=== PATIENT | male | born 1965 | race Asian ===

== ENCOUNTER → 2021-08-26 | Emergency (ER) | payer OTHER ==
[~2021-08-26] VITALS: Ht 172.7 cm; Wt 73.6 kg
[~2021-08-26] MED LIST: HALO5INJ3 IM; HALO5TAB10 PO; HYDR50CA21 PO; LEVE500T5 PO; LISI5TAB10 PO; LORA0.5T17 PO; MIRTAZAPINE7.5 MG PO; OLANZAPINE5 M1 PO; PANTOPRAZOLE 40MG TA PO; SCOP1.5D TD; TRILEPTAL300 MG PO
[2021-08-26 19:39] LABS: PLATELET COUNT 287 K/uL (142-355)
[2021-08-26 19:51] LABS: POTASSIUM 4.1 mmol/L (3.6-5.2)
[2021-08-26 21:40] VITALS: BP 158/87; TEMP 97.3
== END ==
LOC: ED 19:24
PROVIDERS: Emergency Medicine
DX: F25.8 Other schizoaffective disorders (principal); I69.351 Hemiplegia and hemiparesis following cerebral infarction affecting right dominant side; I69.320 Aphasia following cerebral infarction; F03.91 Unspecified dementia, unspecified severity, with behavioral disturbance; Z11.52 Encounter for screening for COVID-19; Z04.6 Encounter for general psychiatric examination, requested by authority
CPT/HCPCS: 36415; 80053; 81000; 85027; 87635; 93005; 99283; J0696; U0003

== ENCOUNTER 2022-03-05 20:28 | Emergency (ER) | payer OTHER ==
[~2022-03-05] VITALS: Ht 172.7 cm; Wt 71.7 kg
[2022-03-05 20:28] VITALS: BP 154/74; TEMP 97.6
[~2022-03-05 20:28] MED LIST changes: +ESCI10TA PO; +HYDR25CA25 PO; +OLAN2.5T2 PO; +OXCARBAZEPIN300 MG PO
[2022-03-05 21:07] LABS: PLATELET COUNT 255 K/uL (142-355)
[2022-03-05 21:15] LABS: POTASSIUM 3.8 mmol/L (3.6-5.2)
[2022-03-06] MEDS ORDERED: ASPIRIN 81 LOW81 MG PO (09:50)
[2022-03-06] MEDS ORDERED: LIPITOR40 MG PO (09:50)
[2022-03-06] MEDS ORDERED: LISI10TA11 PO (09:51)
[2022-03-06] MEDS ORDERED: THIA100T8 PO (09:52)
[2022-03-06] MEDS ORDERED: DIVA125C PO (09:52)
[2022-03-06] MEDS ORDERED: TRILEPTAL300 MG PO (09:55)
[2022-03-06] MEDS ORDERED: NEXIUM20 M1 PO (09:57)
[2022-03-06] MEDS ORDERED: ZYPREXA ZYDI15 MG SL (09:58)
== END 2022-03-05 21:35 | disposition still patient (30) ==
LOC: ED 20:28
PROVIDERS: Hospitalist
DX: F25.8 Other schizoaffective disorders (principal); F03.91 Unspecified dementia, unspecified severity, with behavioral disturbance; Z11.52 Encounter for screening for COVID-19; Z04.6 Encounter for general psychiatric examination, requested by authority
CPT/HCPCS: 36415; 80053; 85027; 87635; 93005; 99283; U0003

== ENCOUNTER 2022-08-10 15:05 | Emergency (ER) | payer OTHER ==
[~2022-08-10] VITALS: Ht 157.5 cm; Wt 78.9 kg
[~2022-08-10 15:05] MED LIST changes: +ASPI81TA4 PO; +ASPIRIN 81 LOW81 MG PO; +ATOR20TA2 PO; +BUSP5TAB2 PO; +BUSPIRONE10 MG PO; +DIPH50IN INJ; +DIVA125C PO; +DIVALPROEX250 MG PO; +HALO5INJ3 INJ; +LIPITOR40 MG PO; +LISI10TA11 PO; +LISINOPRIL 10 MG PO; +MAGNSUS68 PO; +NEXIUM20 M1 PO; +OLANZAPINE5 MG PO; +SERT100T PO; +SERT50TA PO; +TEMA15CA19 PO; +THIA100T8 PO; +ZIPRASIDONE HYD40 MG PO; +ZYPREXA ZYDI15 MG SL
[2022-08-10 16:12] LABS: PLATELET COUNT 183 K/uL (142-355)
[2022-08-10 16:17] LABS: POTASSIUM 4.5 mmol/L (3.6-5.2)
[2022-08-10 16:44] VITALS: BP 124/65; TEMP 98.1
[2022-08-10] MEDS ORDERED: LIPITOR40 MG PO (19:08)
[2022-08-10] MEDS ORDERED: ASPIRIN 81 LOW81 MG PO (19:08)
[2022-08-10] MEDS ORDERED: LISI10TA11 PO (19:09)
[2022-08-10] MEDS ORDERED: SERT100T PO (19:10)
[2022-08-10] MEDS ORDERED: TEMA15CA19 PO (19:11)
[2022-08-10] MEDS ORDERED: OLANZAPINE5 M1 PO (19:13)
[2022-08-10] MEDS ORDERED: BUSPIRONE10 MG PO (19:14)
[2022-08-10] MEDS ORDERED: DIVA125C PO (19:15)
[2022-08-10] MEDS ORDERED: MILK OF MA400 MG/5 M PO (19:17)
[2022-08-10] MEDS ORDERED: DIPHENHYDRAM50 MG/ML IM (19:25)
[2022-08-10] MEDS ORDERED: HALO5INJ3 IM (19:26)
== END 2022-08-10 16:44 | disposition other institution (70) ==
LOC: ED 15:05
PROVIDERS: Family Medicine
DX: F03.91 Unspecified dementia, unspecified severity, with behavioral disturbance (principal); Z11.52 Encounter for screening for COVID-19; Z04.6 Encounter for general psychiatric examination, requested by authority
CPT/HCPCS: 80053; 81002; 85027; 87635; 93005; 99283; U0003

== ENCOUNTER 2023-01-08 23:20 | Emergency (ER) | payer OTHER ==
[~2023-01-08] VITALS: Ht 172.7 cm; Wt 72.6 kg
[~2023-01-08 23:20] MED LIST changes: +DIPHENHYDRAM50 MG/ML IM; +MAGN400T4 PO; +MILK OF MA400 MG/5 M PO
[2023-01-09 00:11] LABS: POTASSIUM 4.2 mmol/L (3.6-5.2)
[2023-01-09 00:13] LABS: PLATELET COUNT 208 K/uL (142-355)
[2023-01-09 01:30] VITALS: BP 135/90; TEMP 98.7
[2023-01-09] MEDS ORDERED: DIVALPROEX250 M1 PO (08:21)
[2023-01-09] MEDS ORDERED: MAGNESIUM1 TAB PO (08:27)
[2023-01-09] MEDS ORDERED: OLANZAPINE7.5 MG PO (08:28)
== END 2023-01-09 01:30 | disposition still patient (30) ==
LOC: ED 23:20
PROVIDERS: Emergency Medicine
DX: F03.911 Unspecified dementia, unspecified severity, with agitation (principal); Z11.52 Encounter for screening for COVID-19; Z04.6 Encounter for general psychiatric examination, requested by authority
CPT/HCPCS: 36415; 80053; 85027; 87635; 93005; 99283; U0003